=== PATIENT | female | born 1990 | race Caucasian/White ===

== ENCOUNTER 2017-06-07 18:34 | Observation (INO) | payer OTHER ==
[2017-06-07] MEDS ORDERED: KETOROLAC TROMETHAMINE INJ/PF 30 MG/1 ML SDV IV ONE (18:48)
[2017-06-07] MEDS ORDERED: NORMAL SALINE 1000 ML 1,000 ML IV PRN (18:48)
[2017-06-07] MEDS ORDERED: ONDANSETRON HCL INJ/PF 4 MG/2 ML SDV IV ONE (18:48)
--- NOTE | 2017-06-07 18:49 | ER Document Report ---
ED Medical Screen (RME) - General Chief Complaint: Abdominal Pain Stated Complaint: RIGHT SIDE ABDOMINAL PAIN Time Seen by Provider: 06/07/17 18:43 Mode of Arrival: Ambulatory Information source: Patient TRAVEL OUTSIDE OF THE U[place] IN LAST 30 DAYS: No - HPI Patient complains to provider of: Right-sided abdominal pain Onset: This afternoon Notes: 06/07/17 18:48 Patient is a 26-year-old female who presents to the emergency room from urgent care for complaints of right-sided abdominal pain with nausea, vomiting and decreased appetite, symptoms all started today, she denies a fever, she did have dysuria a few days ago but not today, no vaginal discharge or irregular bleeding, history of mitral valve repair in the past but no abdominal surgeries - Related Data Allergies/Adverse Reactions: No Known Allergies Allergy (Verified 06/07/17 18:41) Past Medical History Renal/ Medical History: Denies: Hx Peritoneal Dialysis Physical Exam - Vital signs Vitals: Temp Pulse Resp BP Pulse Ox 98.8 F 129 H 18 137/85 H 97 06/07/17 18:38 06/07/17 18:38 06/07/17 18:38 06/07/17 18:38 06/07/17 18:38 Course - Vital Signs Vital signs: Temp Pulse Resp BP Pulse Ox 98.8 F 129 H 18 137/85 H 97 06/07/17 18:38 06/07/17 18:38 06/07/17 18:38 06/07/17 18:38 06/07/17 18:38
[2017-06-07 20:44] LABS: ABSOLUTE BASOPHILS # (AUTO) 0.1 10^3/uL (0.0-0.2); ABSOLUTE EOSINOPHILS # (AUTO) 0.1 10^3/uL (0.0-0.6); ABSOLUTE LYMPHOCYTES (AUTO) 1.3 10^3/uL (0.5-4.7); ABSOLUTE MONOCYTES (AUTO) 0.7 10^3/uL (0.1-1.4); ABSOLUTE NEUT (AUTO) 11.1 10^3/uL (1.7-8.2); BASOPHILS % (AUTO) 0.4 % (0-2); EOSINOPHILS % (AUTO) 0.4 % (0-6); HEMATOCRIT 44.2 % (36.0-47.0); HEMOGLOBIN 14.5 g/dL (12.0-15.5); HGB HCT DIFFERENCE -0.7; LYMPHOCYTES % (AUTO) 9.8 % (13-45); MEAN CORPUSCULAR HEMOGLOBIN 27.6 pg (27.0-33.4); MEAN CORPUSCULAR HGB CONC 32.7 g/dL (32.0-36.0); MEAN CORPUSCULAR VOLUME 84 fl (80-97); MONOCYTES % (AUTO) 5.6 % (3-13); RED BLOOD COUNT 5.24 10^6/uL (3.72-5.28); RED CELL DISTRIBUTION WIDTH 13.5 % (11.5-14.0); SEGMENTED NEUTROPHILS % (AUTO) 83.8 % (42-78); WHITE BLOOD COUNT 13.3 10^3/uL (4.0-10.5)
[2017-06-07 20:53] LABS: APPEARANCE,URINE SLIGHTLY-CLOUDY; BILIRUBIN,URINE NEGATIVE (NEGATIVE); GLUCOSE, URINE NEGATIVE (NEGATIVE); KETONES,URINE 20 mg/dL (NEGATIVE); LEUKOCYTE ESTERASE,URINE SMALL (NEGATIVE); NITRITE,URINE NEGATIVE (NEGATIVE); PROTEIN,URINE 30 mg/dL (NEGATIVE); URINE SPECIFIC GRAVITY 1.034
[2017-06-07 21:03] LABS: ALANINE AMINOTRANSFERASE 17 U/L (9-52); ALBUMIN 4.8 g/dL (3.5-5.0); ALKALINE PHOSPHATASE 67 U/L (38-126); ANION GAP 16 (5-19); ASPARTATE AMINO TRANSFERASE 17 U/L (14-36); BILIRUBIN,DIRECT 0.3 mg/dL (0.0-0.4); BILIRUBIN,TOTAL 0.9 mg/dL (0.2-1.3); BLOOD UREA NITROGEN 15 mg/dL (7-20); CALCIUM 9.9 mg/dL (8.4-10.2); CARBON DIOXIDE 21 mmol/L (22-30); CHLORIDE 105 mmol/L (98-107); CREATININE RESULT 0.63 mg/dL (0.52-1.25); GLUCOSE 81 mg/dL (75-110); LIPASE 103.9 U/L (23-300); POTASSIUM 3.8 mmol/L (3.6-5.0); SODIUM 141.7 mmol/L (137-145); TOTAL PROTEIN 8.3 g/dL (6.3-8.2)
--- NOTE | 2017-06-07 21:52 | ER Document Report ---
ED GI/ - General Mode of Arrival: Ambulatory Information source: Patient TRAVEL OUTSIDE OF THE U.[place] IN LAST 30 DAYS: No - HPI Patient complains to provider of: Abdominal pain Onset: This afternoon Location: RLQ <CATINA CASTILLO - Last Filed: 06/08/17 02:10> - HPI Patient complains to provider of: Other - preceding anorexia <KARSON VALENTINO - Last Filed: 06/08/17 04:10> - General Chief Complaint: Abdominal Pain Stated Complaint: RIGHT SIDE ABDOMINAL PAIN Time Seen by Provider: 06/07/17 18:43 Notes: Patient is a 26-year-old female who presents to the emergency department today with complaints of right lower quadrant abdominal pain beginning at around 1500 today. Patient states she decided to lie down after her pain began and her pain steadily increased to the point where "she felt like she could not move". Patient states she went to an urgent care who told her she needed to be evaluated in the emergency department for possible appendicitis. Patient states she had a pelvic exam done at urgent care and it was not particularly painful. Patient states she has had sweats and chills and one episode of vomiting. Patient denies any fevers or diarrhea. (CATINA CASTILLO) - Related Data Allergies/Adverse Reactions: No Known Allergies Allergy (Verified 06/07/17 18:41) Past Medical History - General Information source: Patient - Social History Smoking Status: Never Smoker Cigarette use (# per day): No Chew tobacco use (# tins/day): No Frequency of alcohol use: None Drug Abuse: None Lives with: Family Family History: Reviewed & Not Pertinent - Medical History Medical History: Negative Past Surgical History: Reports: Hx Cardiac Surgery - mitral valve repair, Hx Oral Surgery <CATINA CASTILLO - Last Filed: 06/08/17 02:10> Review of Systems - Review of Systems Constitutional: See HPI, Chills, Diaphoresis. denies: Fever EENT: No symptoms reported Cardiovascular: No symptoms reported Respiratory: No symptoms reported Gastrointestinal: denies: Diarrhea Genitourinary: No symptoms reported Female Genitourinary: No symptoms reported Musculoskeletal: No symptoms reported Skin: No symptoms reported Hematologic/Lymphatic: No symptoms reported Neurological/Psychological: No symptoms reported -: Yes All other systems reviewed and negative <CATINA CASTILLO - Last Filed: 06/08/17 02:10> Physical Exam <CATINA CASTILLO - Last Filed: 06/08/17 02:10> <KARSON VALENTINO - Last Filed: 06/08/17 04:10> - Vital signs Vitals: Temp Pulse Resp BP Pulse Ox 98.8 F 129 H 18 137/85 H 97 06/07/17 18:38 06/07/17 18:38 06/07/17 18:38 06/07/17 18:38 06/07/17 18:38 - Notes Notes: PHYSICAL EXAM GENERAL: Alert, interacts well. No acute distress. HEAD: Normocephalic, atraumatic. EYES: Pupils equal, round, and reactive to light. Extraocular movements intact. ENT: Oral mucosa moist, tongue midline. NECK: Full range of motion. Supple. Trachea midline. LUNGS: Clear to auscultation bilaterally, no wheezes, rales, or rhonchi. No respiratory distress. HEART: Regular rate and rhythm. No murmurs, gallops, or rubs. ABDOMEN: RLQ tenderness with palpation, positive McBurney's point tenderness. Non-distended. Bowel sounds present in all 4 quadrants. EXTREMITIES: Moves all 4 extremities spontaneously. No edema, radial and dorsalis pedis pulses 2/4 bilaterally. No cyanosis. NEUROLOGICAL: Alert and oriented x3. Normal speech. PSYCH: Normal affect, normal mood. SKIN: Warm, dry, normal turgor. No rashes or lesions noted. (CATINA CASTILLO) Course - Laboratory Result Diagrams: 06/07/17 20:22 06/07/17 20:22 <CATINA CASTILLO - Last Filed: 06/08/17 02:10> - Laboratory Result Diagrams: 06/07/17 20:22 06/07/17 20:22 <KARSON VALENTINO - Last Filed: 06/08/17 04:10> - Re-evaluation Re-evalutation: 06/08/17 02:10 Attempted to contact surgeon, Dr. Zacarias, no answer. (CATINA CASTILLO) 06/08/17 02:43 CBC shows leukocytosis with a white blood cell count of 13.3, CMP shows slightly low CO2 at 21 otherwise unremarkable, hCG negative, urinalysis shows small leukocyte esterase, suspect pyuria from her appendicitis, suspect this is sterile. CT scan shows unruptured appendicitis, will be treated with Zosyn. Discussed with Dr. Zacarias who will see the patient in the morning, has agreed to admit the patient to his service. Additionally the patient does have an abnormal process going on regarding her lumbar and sacral spine, radiologist is uncertain as to what this is, recommends follow-up contrasted MRI of the lumbar and sacral spine, not emergently. This was discussed with the patient and her . They are aware of the need for an outpatient MRI. (KARSON VALENTINO) - Vital Signs Vital signs: Temp Pulse Resp BP Pulse Ox 98.8 F 129 H 16 111/70 98 06/07/17 18:38 06/07/17 18:38 06/08/17 03:01 06/08/17 03:00 06/08/17 03:48 - Laboratory Laboratory results interpreted by me: 06/07/17 06/07/17 06/07/17 20:22 20:22 20:22 WBC 13.3 H Seg Neutrophils % 83.8 H Lymphocytes % 9.8 L Absolute Neutrophils 11.1 H Carbon Dioxide 21 L Total Protein 8.3 H Urine Protein 30 H Urine Ketones 20 H Urine Urobilinogen 2.0 H Ur Leukocyte Esterase SMALL H Discharge <CATINA CASTILLO - Last Filed: 06/08/17 02:10> - Discharge Admitting Provider: Surgicalist - [facility]ann Unit Admitted: Surgical Floor <KARSON VALENTINO - Last Filed: 06/08/17 04:10> - Discharge Clinical Impression: Acute appendicitis Qualifiers: Acute appendicitis type: with localized peritonitis Qualified Code(s): K35.3 - Acute appendicitis with localized peritonitis Condition: Stable Disposition: ADMITTED INPATIENT Scribe Attestation: 06/08/17 04:10 I personally performed the services described in the documentation, reviewed and edited the documentation which was dictated to the scribe in my presence, and it accurately records my words and actions. (KARSON VALENTINO) Scribe Documentation - Scribe Written by Francisco J:: Francisco J Richardson, 06/08/2017 0202 acting as scribe for :: Ronald <CATINA CASTILLO - Last Filed: 06/08/17 02:10>
[2017-06-08] MEDS ORDERED: NORMAL SALINE 1000 ML 1,000 ML IV ONE (02:10)
[2017-06-08] MEDS ORDERED: PIPERACILLIN/TAZOBACTAM 3.375 GM VIAL IV ONE (02:10)
[2017-06-08] MEDS ORDERED: DEXTROSE 40% GEL 15 GM TUBE PO PRN ×2 (06:29)
[2017-06-08] MEDS ORDERED: DEXTROSE 50%-WATER 25 GM/50 ML DISP.SYRIN IV PRN ×2 (06:29)
[2017-06-08] MEDS ORDERED: GLUCAGON,HUMAN RECOMB 1 MG INJ SUBCUT PRN (06:29)
[2017-06-08] MEDS ORDERED: NORMAL SALINE 1000 ML 1,000 ML IV PRN (06:42)
[2017-06-08] MEDS ORDERED: HYDROMORPHONE HCL INJ/PF 2 MG/ML AMPULE IV PRN (06:44)
[2017-06-08] MEDS ORDERED: PIPERACILLIN/TAZOBACTAM 3.375 GM VIAL IV PRN (06:44)
[2017-06-08] MEDS ORDERED: ONDANSETRON HCL INJ/PF 4 MG/2 ML SDV IV PRN ×3 (06:45→13:42)
--- NOTE | 2017-06-08 07:02 | HISTORY AND PHYSICAL E ---
History and Physical NAME: JOHANNE MCKAY : 1990 AGE: 26Y ADMITTED: 06/08/2017 ROOM: 529 CHIEF COMPLAINT: Abdominal pains. HISTORY OF PRESENT ILLNESS: This is a 26-year-old female complaining of right lower quadrant pains yesterday at 3 p.m. associated with nausea and 1 episode of vomiting. Denies any diarrhea nor constipation or dysuria. She first went to the emergency room at [place]. She had a CAT scan of the abdomen, which was compatible with acute appendicitis. PAST HISTORY: 1. History of open heart surgery for repair of mitral valve due to endocarditis at age 21. Patient does not take any medications. 2. She had 2 normal vaginal deliveries in the past. ALLERGIES: None known. SOCIAL HISTORY: Denies smoking, drinking, or drug use. FAMILY HISTORY: Positive for diabetes and atrial fibrillation in the father's side. REVIEW OF SYSTEMS: HEENT: No hearing problems. Wears eyeglasses. PULMONARY: No chest pain, shortness of breath. No cough. GENITOURINARY: No dysuria. MUSCULOSKELETAL: No joint pains or balance problems. No easy bruisability. GASTROINTESTINAL: As in HPI. Abdominal pains with anorexia and nausea and vomiting. Rest of the systems reviewed and are negative. PHYSICAL EXAMINATION: GENERAL: Well-developed, well-nourished 26-year-old female, alert and oriented, complaining of right lower quadrant pains. NECK: Supple. No thyromegaly. LUNGS: Clear. HEART: Regular sinus rhythm. ABDOMEN: Soft with tenderness and rebound in the right lower quadrant. Pain is more on direct palpation than on rebound. EXTREMITIES: No edema. IMPRESSION: Acute appendicitis. PLAN: 1. IV antibiotics. 2. Hydration. 3. Possible laparoscopic appendectomy this morning by Dr. Castillo. DICTATING PHYSICIAN: ALISA GONZALEZ M.D. [id number] PHY#: [id number] ID: [id number] JOB#: [id number] ACCT: [id number] cc:ALISA GONZALEZ M.D. NO Elizabeth LYONS
[2017-06-08] MEDS ORDERED: PIPERACILLIN SODIUM/TAZOBACTAM 3.375 GM in NORMAL SALINE 100 ML IV ONE (08:00)
--- NOTE | 2017-06-08 08:17 | PDOC PROGRESS REPORT ---
Subjective Progress Note for:: 06/08/17 Subjective:: Persistent right lower quadrant abdominal pain. Physical Exam Vital Signs: Temp Pulse Resp BP Pulse Ox 98.0 F 75 17 98/44 L 99 06/08/17 07:51 06/08/17 07:51 06/08/17 07:51 06/08/17 07:51 06/08/17 07:51 Intake & Output 06/07/17 06/08/17 06/09/17 06:59 06:59 06:59 Intake Total 240 Output Total 375 Balance -135 Weight 80.7 kg General appearance: PRESENT: no acute distress, cooperative Respiratory exam: PRESENT: clear to auscultation hanane Cardiovascular exam: PRESENT: RRR GI/Abdominal exam: PRESENT: other - Soft, nondistended, focal tenderness to palpation in the right lower quadrant with voluntary guarding. Assessment & Plan - Diagnosis (1) Acute appendicitis Qualifiers: Acute appendicitis type: with localized peritonitis Qualified Code(s): K35.3 - Acute appendicitis with localized peritonitis Is this a current diagnosis for this admission?: Yes Plan: Likely appendicitis. Will plan laparoscopic appendectomy. I have discussed with the patient the risk and benefits of the surgery including risk of conversion to an open procedure, risk of mistaken diagnosis, risk of bleeding, infection, adjacent structure injury, stump leak. Patient understands and agrees to proceed.
[2017-06-08] MEDS ORDERED: PIPERACILLIN SODIUM/TAZOBACTAM 3.375 GM in NORMAL SALINE 100 ML IV SCH ×2 (09:00→15:00)
[2017-06-08] MEDS ORDERED: FENTANYL CITRATE INJ/PF 250 MCG/5 ML AMPULE ONE (10:32)
[2017-06-08] MEDS ORDERED: ACETAMINOPHEN 100 ML IV ONE (10:33)
[2017-06-08] MEDS ORDERED: FENTANYL CITRATE INJ/PF 100 MCG/2 ML AMPUL ONE (10:33)
[2017-06-08] MEDS ORDERED: MIDAZOLAM 2 MG/2 ML INJ ONE (10:33)
[2017-06-08] MEDS ORDERED: PROPOFOL INJ 200 MG/20 ML VIAL IV ONE (10:33)
[2017-06-08] MEDS ORDERED: MORPHINE SULFATE 10 MG/ML INJ ONE (10:34)
[2017-06-08] MEDS ORDERED: BUPIVACAINE HCL 0.25 % INJ/PF (2.5 MG/1 ML) 30 ML VIAL ONE ×2 (10:36→11:23)
[2017-06-08] MEDS ORDERED: HYDROMORPHONE HCL INJ/PF 2 MG/ML AMPULE ONE (11:21)
[2017-06-08] MEDS ORDERED: DIPHENHYDRAMINE HCL 50 MG/ML VIAL IV PRN (12:06)
[2017-06-08] MEDS ORDERED: FENTANYL CITRATE INJ/PF 100 MCG/2 ML AMPUL IV PRN ×3 (12:06)
[2017-06-08] MEDS ORDERED: MEPERIDINE HCL/PF INJ 25 MG/1 ML DISP.SYRIN IV PRN (12:06)
[2017-06-08] MEDS ORDERED: DEXTROSE 5%-LACTATED RINGERS 1,000 ML IV PRN (13:42)
[2017-06-08] MEDS ORDERED: MORPHINE SULFATE 10 MG/ML INJ IV PRN (13:42)
--- NOTE | 2017-06-08 13:42 | Operative Report ---
Operative Report DATE OF SURGERY: 06/08/17 PREOPERATIVE DIAGNOSIS: Appendicitis POSTOPERATIVE DIAGNOSIS: Appendicitis OPERATION: Laparoscopic appendectomy SURGEON: VANDANA MADERA ANESTHESIA: GA TISSUE REMOVED OR ALTERED: Appendix COMPLICATIONS: None ESTIMATED BLOOD LOSS: Minimal INTRAOPERATIVE FINDINGS: Small amount of bloody fluid in the pelvis. Bilateral ovaries appears normal. Colon distention but otherwise normal appearing right colon and sigmoid colon. Normal-appearing small bowel. Normal-appearing liver and gallbladder. Distended appendix. PROCEDURE: Informed consent was obtained. Patient was brought to the operating room and placed on the operating room table in the supine position. After satisfactory induction of general anesthesia, patient's abdomen was prepped and draped in usual sterile fashion. A supraumbilical midline incision was made and dissection carried down through the fascia and the peritoneal cavity entered without difficulty. Griffin trocar was inserted pneumoperitoneum produced with good patient toleration. 5 mm trocar was placed in right lateral abdomen lateral to the rectus above the level of the umbilicus. Another 5 mm trocar was placed in the left lateral abdomen lateral to the rectus below the level of the umbilicus. The patient was placed in Trendelenburg position with the right side up. The appendix was visualized it appeared distended and its mesentery thickened. There was small amount of bloody fluid in the pelvis that was irrigated and aspirated out. Both of her ovaries were visualized and they appeared normal. As did the uterus. The colon appeared distended but otherwise the right colon and the sigmoid colon appeared normal. The small bowel was run for about 3 feet and it demonstrated no abnormalities. The liver appeared normal S of the gallbladder. A plane was created between the appendix and the mesial appendix. The appendix was taken flush with the cecum using a Endo ERLIN stapling device. The mesoappendix was taken using another load of the Endo ERLIN stapling device. The stump closure appeared secure and hemostasis appeared excellent. the appendix was placed in an Endobag and removed through the Griffin trocar site fascial defect. All trochars were removed under the direct vision of the laparoscope to ensure hemostasis. The Griffin trocar site fascial defect was closed with interrupted Vicryl sutures. All skin incisions were closed with subcuticular interrupted Monocryl sutures. Marcaine was injected at the port sites. Patient tolerated procedure well with no apparent complications and was taken to the recovery area in stable condition.
[2017-06-08] MEDS ORDERED: ONDANSETRON HCL INJ/PF 4 MG/2 ML SDV ONE ×2 (13:47→14:43)
[2017-06-08] MEDS ORDERED: DEXAMETHASONE SOD PHOSPHATE INJ 4 MG/1 ML VIAL ONE (13:47)
[2017-06-08] MEDS ORDERED: NEOSTIGMINE METHYLSULFATE 10 MG/10 ML VIAL ONE (13:47)
[2017-06-08] MEDS ORDERED: LIDOCAINE 2% INJ-PF (20 MG/ML) 10 ML AMPUL ONE (13:47)
[2017-06-08] MEDS ORDERED: GLYCOPYRROLATE INJ 0.4 MG/2 ML VIAL ONE (13:47)
[2017-06-08] MEDS ORDERED: ROCURONIUM BROMIDE INJ 50 MG/5 ML VIAL IV ONE (13:47)
--- NOTE | 2017-06-08 19:41 | PDOC PROGRESS REPORT ---
Subjective Progress Note for:: 06/08/17 Subjective:: Tired but overall feels okay. Physical Exam Vital Signs: Temp Pulse Resp BP Pulse Ox 97.8 F 87 18 114/78 99 06/08/17 18:10 06/08/17 18:10 06/08/17 18:10 06/08/17 18:10 06/08/17 18:10 Intake & Output 06/07/17 06/08/17 06/09/17 06:59 06:59 06:59 Intake Total 240 3769 Output Total 375 1570 Balance -135 2199 Weight 80.7 kg General appearance: PRESENT: no acute distress, cooperative Respiratory exam: PRESENT: clear to auscultation hanane Cardiovascular exam: PRESENT: RRR GI/Abdominal exam: PRESENT: other - Soft, nondistended, no tenderness to palpation in the right lower quadrant. Assessment & Plan - Diagnosis (1) Acute appendicitis Qualifiers: Acute appendicitis type: with localized peritonitis Qualified Code(s): K35.3 - Acute appendicitis with localized peritonitis Is this a current diagnosis for this admission?: Yes Plan: Status post laparoscopic appendectomy. Patient doing well postoperatively. With resolution of her preoperative pain and tenderness.
[2017-06-09 09:56] VITALS: BP 107/62
--- NOTE | 2017-06-09 10:01 | PDOC PROGRESS REPORT ---
Subjective Progress Note for:: 06/09/17 Subjective:: patient comfortable Physical Exam Vital Signs: Temp Pulse Resp BP Pulse Ox 98.5 F 67 17 110/54 L 99 06/09/17 03:19 06/09/17 03:19 06/09/17 03:19 06/09/17 03:19 06/09/17 03:19 Intake & Output 06/08/17 06/09/17 06/10/17 06:59 06:59 06:59 Intake Total 240 6049 Output Total 375 2150 Balance -135 3899 Weight 80.7 kg General appearance: PRESENT: no acute distress Respiratory exam: PRESENT: clear to auscultation hanane Cardiovascular exam: PRESENT: RRR GI/Abdominal exam: PRESENT: normal bowel sounds, soft, other - all wounds are clean, dry, intact Assessment & Plan - Diagnosis (1) Acute appendicitis Qualifiers: Acute appendicitis type: with localized peritonitis Qualified Code(s): K35.3 - Acute appendicitis with localized peritonitis Is this a current diagnosis for this admission?: Yes - Plan Summary Plan Summary: A/ POD#1 after laparoscopic appendectomy Patient tolerating regular food well VSS AF Abdomen soft, wound c/d/i P/ Home today F/u in the office in 1 week shower only, bath in 2 weeks activity as tolerated, no limitations no wound care needed return to work in 2-3 days Tylenol/Aleve for pain Plenty of fluids and Miralax as needed
--- NOTE | 2017-06-09 10:41 | DISCHARGE SUMMARY E ---
Discharge Summary NAME: JOHANNE MCKAY : 1990 AGE: 26Y ADMITTED: 06/08/2017 DISCHARGED: 06/09/2017 FINAL DIAGNOSES: 1. Abdominal pain. 2. Acute appendicitis. PROCEDURE: On 06/08/2017, the patient underwent a laparoscopic appendectomy. COMPLICATIONS: None. HOSPITAL COURSE: This is a healthy 26-year-old female who presented to the emergency room complaining of abdominal pain. She was evaluated by the animal trapper first and CT scan abdomen and pelvis was done revealing acute appendicitis. The patient was admitted on 06/07/2017, seen by the Surgeon on 06/08/2017, she underwent a laparoscopic appendectomy for acute appendicitis on the same day. during the procedure, no perforation was noted. The procedure was uneventful. The patient was transferred to the floor. Her postop course was unremarkable. On the day of discharge, the patient had no complaints. She was tolerating p.o. well. Her regular diet was well tolerated. Vital signs were stable. Physical exam was unremarkable. Abdomen soft. All incisions were clean, dry, intact. ASSESSMENT AND PLAN: She was given a followup appointment with Dr. Castillo next week on 06/12/17. Activity as tolerated. A regular diet. Shower only for 2 weeks, then bath is allowed. She was given Tylenol 325 p.o. q. 6 p.r.n. for pain, Aleve 220 p.o. b.i.d. p.r.n. for pain. She was instructed to drink plenty of fluids and to use Miralax p.r.n. for constipation. No wound care needed. DICTATING PHYSICIAN: CINDA GODINEZ M.D. [id number] PHY#: [id number] ID: [id number] JOB#: [id number] ACCT: [id number] cc:Elizabeth GRESHAM MD, M.D. [facility], > [facility]
--- NOTE | 2017-06-12 12:45 | RADIOLOGY REPORT (SQ) ---
EXAM DESCRIPTION: CT ABD/PELVIS WITH IV ORAL COMPLETED DATE/TIME: 06/08/2017 1:25 am REASON FOR STUDY: RLQ abd pain, eval for appendicitis. COMPARISON: None. TECHNIQUE: CT scan of the abdomen and pelvis performed with intravenous and oral contrast using hel ical scanning technique with dynamic intravenous contrast injection. Images reviewed with lung, soft tissue, and bone windows. Reconstructed coronal and sagittal MPR images reviewed. All images stored o n PACS. All CT scanners at this facility use dose modulation, iterative reconstruction, and/or weight based d osing when appropriate to reduce radiation dose to as low as reasonably achievable (ALARA). [facility]: Dose Right [facility]: CareDose [facility]: Dose Right [facility]: Teradose 4D [facility]: Cytheris CONTRAST TYPE AND DOSE: Contrast CT of the abdomen pelvis using 35 cc Isovue 370 IV and oral contras t LIMITATIONS: None. FINDINGS: 0.8 cm diameter fluid-filled appendix with punctate appendicolith consistent with acute ap pendicitis. Small cortical scar of the right kidney. Cystic enlargement of the lumbar and sacral spinal canal and bilateral S1 neural foramen a with cysti c components measuring up to 5.2 cm, left more than right. IUD. Prior sternotomy. Inferior chest, liver, spleen, adrenals, pancreas, gallbladder, remaining ga strointestinal tract, lymphatic system, remaining renal system, and pelvic structures appear grossly intact. IMPRESSION: 1. Acute appendicitis. 2. Cystic enlargement of the lumbosacral spinal canal and bilateral S1 foramina. Differential diagn osis includes nerve sheath tumor/neurofibromatosis, polyostotic fibrous dysplasia, and other neoplast ic processes. Contrast MRI of the spine and brain recommended. TECHNICAL DOCUMENTATION: JOB ID: [id number] Quality ID # [id number]: Final reports with documentation of one or more dose reduction techniques (e.g., Au tomated exposure control, adjustment of the mA and/or kV according to patient size, use of iterative reconstruction technique) 2010 [employer]- All Rights Reserved
== END 2017-06-09 10:51 | disposition home or self-care (01) ==
LOC: ER 18:34 → INTOOBSV 06-08 02:48 → EH 06-08 02:48 → 5 06-08 03:58
PROVIDERS: ATTEND Surgery
PROC: 0DTJ4ZZ Resection of Appendix, Percutaneous Endoscopic Approach (ICD-10-PCS; principal; 2017-06-08 11:00)
DX: K35.3 Acute appendicitis with localized peritonitis (principal); R10.9 Unspecified abdominal pain; K63.89 Other specified diseases of intestine
CPT/HCPCS: 44970; 99285; 96361; 96374; 96375; 36415; 87086; 83690; 84703; 85025; 80053; 81001; 88304 ×2; 74177; G0378 ×2; J2250; J3490 ×2; J1100; J3010; J1885; J1170; J2405 ×2; J7030 ×2; J2704; J2543; J0131; 840; J2270

== ENCOUNTER 2019-07-29 10:49 | Emergency (ER) | payer BC, OTHER ==
[2019-07-29] MEDS ORDERED: ASPIRIN 81 MG TABLET, CHEWABLE PO ONE (11:18)
--- NOTE | 2019-07-29 11:20 | ER Document Report ---
ED Medical Screen (RME) - General Chief Complaint: Shortness Of Breath Stated Complaint: CHEST PRESSURE Time Seen by Provider: 07/29/19 11:11 Mode of Arrival: Ambulatory Information source: Patient Notes: Patient presents complaining of chest pain for the past 4 days with fever for the past 3 days. Patient reports exertional shortness of breath. No cough or cold symptoms. Patient does report a history of endocarditis with previous mitral valve repair. Patient also reports long distance travel to [place] last week. I have greeted and performed a rapid initial assessment of this patient. A comprehensive ED assessment and evaluation of the patient, analysis of test results and completion of the medical decision making process will be conducted by additional ED providers. TRAVEL OUTSIDE OF THE [place] IN LAST 30 DAYS: No - Related Data Allergies/Adverse Reactions: No Known Allergies Allergy (Verified 06/07/17 18:41) Past Medical History Renal/ Medical History: Denies: Hx Peritoneal Dialysis Past Surgical History: Reports: Hx Cardiac Surgery - mitral valve repair, Hx Oral Surgery Physical Exam - Cardiovascular Rhythm: Regular, Tachycardia Heart sounds: S1 appreciated, S2 appreciated
[2019-07-29 12:13] LABS: ABSOLUTE EOSINOPHILS # (AUTO) 0.1 10^3/uL (0.0-0.6); ABSOLUTE LYMPHOCYTES (AUTO) 1.5 10^3/uL (0.5-4.7); ABSOLUTE MONOCYTES (AUTO) 0.7 10^3/uL (0.1-1.4); ABSOLUTE NEUT (AUTO) 6.3 10^3/uL (1.7-8.2); BASOPHILS % (AUTO) 0.4 % (0-2); EOSINOPHILS % (AUTO) 0.9 % (0-6); HEMOGLOBIN 12.7 g/dL (12.0-15.5); LYMPHOCYTES % (AUTO) 17.1 % (13-45); MEAN CORPUSCULAR HEMOGLOBIN 27.3 pg (27.0-33.4); MEAN CORPUSCULAR HGB CONC 33.4 g/dL (32.0-36.0); MEAN CORPUSCULAR VOLUME 82 fl (80-97); MONOCYTES % (AUTO) 8.2 % (3-13); PLATELET COUNT 259 10^3/uL (150-450); RED BLOOD COUNT 4.64 10^6/uL (3.72-5.28); SEGMENTED NEUTROPHILS % (AUTO) 73.4 % (42-78); TOTAL CELLS COUNTED % (AUTO) 100 %; WHITE BLOOD COUNT 8.6 10^3/uL (4.0-10.5)
[2019-07-29 12:44] LABS: ALBUMIN 4.1 g/dL (3.5-5.0); ALKALINE PHOSPHATASE 74 U/L (38-126); ANION GAP 10 (5-19); ASPARTATE AMINO TRANSFERASE 26 U/L (14-36); BILIRUBIN,DIRECT 0.1 mg/dL (0.0-0.4); BILIRUBIN,TOTAL 0.8 mg/dL (0.2-1.3); BLOOD UREA NITROGEN 10 mg/dL (7-20); CALCIUM 9.5 mg/dL (8.4-10.2); CARBON DIOXIDE 25 mmol/L (22-30); CHLORIDE 103 mmol/L (98-107); GLUCOSE 84 mg/dL (75-110); POTASSIUM 4.2 mmol/L (3.6-5.0); TOTAL PROTEIN 7.1 g/dL (6.3-8.2)
--- NOTE | 2019-07-29 13:12 | EKG REPORT ---
SEVERITY:- ABNORMAL ECG - SINUS TACHYCARDIA ATRIAL PREMATURE COMPLEX PROBABLE LEFT ATRIAL ABNORMALITY BORDERLINE RIGHT AXIS DEVIATION BORDERLINE T ABNORMALITIES, ANT-LAT LEADS : Confirmed by: Russel Guillory MD 29-Jul-2019 13:11:26
--- NOTE | 2019-07-29 13:24 | RADIOLOGY REPORT (SQ) ---
EXAM DESCRIPTION: CHEST 2 VIEWS COMPLETED DATE/TIME: 07/29/2019 1:16 pm REASON FOR STUDY: cp, sob COMPARISON: None. EXAM PARAMETERS: NUMBER OF VIEWS: two views TECHNIQUE: Digital Frontal and Lateral radiographic views of the chest acquired. RADIATION DOSE: NA LIMITATIONS: none FINDINGS: LUNGS AND PLEURA: No opacities, masses or pneumothorax. No pleural effusion. MEDIASTINUM AND HILAR STRUCTURES: No masses or contour abnormalities. HEART AND VASCULAR STRUCTURES: Heart normal size. No evidence for failure. BONES: Scoliosis. HARDWARE: Sternotomy wires. Heart valve. OTHER: No other significant finding. IMPRESSION: NO ACUTE RADIOGRAPHIC FINDING IN THE CHEST. TECHNICAL DOCUMENTATION: JOB ID: [id number] [employer]- All Rights Reserved Reading location - IP/workstation name: [email or web address]
--- NOTE | 2019-07-29 15:09 | ER Document Report ---
ED General - General Mode of Arrival: Ambulatory TRAVEL OUTSIDE OF THE [place] IN LAST 30 DAYS: No - HPI Onset: Just prior to arrival Onset/Duration: Gradual Quality of pain: Achy Severity: Moderate Pain Level: 2 <CATHI MORRISON - Last Filed: 07/29/19 15:45> <KARSON VALENTINO - Last Filed: 07/30/19 00:02> - General Chief Complaint: Chest Pain Stated Complaint: CHEST PRESSURE Time Seen by Provider: 07/29/19 11:11 Primary Care Provider: CAPO LOPEZ PA-C [Primary Care Provider] - Follow up as needed - HPI Context: 29 year old female arrives with complaints of chest pain and sob since - 4 days ago. SOB is worse since the weekend and some fever and chills over the weekend. No rash. H/O endocarditis 4 years ago and mitral valve repair. No recent illness. Denies urinary symptoms. Woke up with chills and fever over weekend. Nonsmoker. IUD in place. (CATHI MORRISON) - Related Data Allergies/Adverse Reactions: No Known Allergies Allergy (Verified 06/07/17 18:41) Past Medical History - General Information source: Patient - Social History Smoking Status: Never Smoker Frequency of alcohol use: None Drug Abuse: None Family History: Reviewed & Not Pertinent Patient has suicidal ideation: No Patient has homicidal ideation: No Renal/ Medical History: Denies: Hx Peritoneal Dialysis Past Surgical History: Reports: Hx Appendectomy, Hx Cardiac Surgery - mitral valve repair, Hx Oral Surgery <CATHI MORRISON - Last Filed: 07/29/19 15:45> Review of Systems - Review of Systems Constitutional: See HPI, Chills, Fever EENT: No symptoms reported Cardiovascular: See HPI, Chest pain Respiratory: See HPI, Short of breath Gastrointestinal: No symptoms reported Genitourinary: No symptoms reported Female Genitourinary: No symptoms reported Musculoskeletal: No symptoms reported Skin: No symptoms reported Hematologic/Lymphatic: No symptoms reported Neurological/Psychological: No symptoms reported <CATHI MORRISON - Last Filed: 07/29/19 15:45> Physical Exam - Vital signs Interpretation: Normal - General General appearance: Appears well, Alert - HEENT Head: Normocephalic, Atraumatic Eyes: Normal Pupils: PERRL - Respiratory Respiratory status: No respiratory distress Chest status: Nontender Breath sounds: Normal Chest palpation: Normal - Cardiovascular Rhythm: Regular Heart sounds: Normal auscultation Murmur: No - Abdominal Inspection: Normal Distension: No distension Bowel sounds: Normal Tenderness: Nontender Organomegaly: No organomegaly - Back Back: Normal, Nontender - Extremities General upper extremity: Normal inspection, Nontender, Normal color, Normal ROM, Normal temperature General lower extremity: Normal inspection, Nontender, Normal color, Normal ROM, Normal temperature, Normal weight bearing. No: Jason's sign - Neurological Neuro grossly intact: Yes Cognition: Normal Orientation: AAOx4 [place] Coma Scale Eye Opening: Spontaneous [place] Coma Scale Verbal: Oriented Kyle Coma Scale Motor: Obeys Commands Kyle Coma Scale Total: 15 Speech: Normal Motor strength normal: LUE, RUE, LLE, RLE Sensory: Normal - Psychological Associated symptoms: Normal affect, Normal mood - Skin Skin Temperature: Warm Skin Moisture: Dry Skin Color: Normal <CATHI MORRISON - Last Filed: 07/29/19 15:45> - Vital signs Vitals: Pulse Ox 98 07/29/19 11:18 Course - Laboratory Result Diagrams: 07/29/19 11:58 07/29/19 11:58 - EKG Interpretation by [place] EKG shows normal: Sinus rhythm Rate: Normal - NSR Nl [place] [address] elevation or depression my interpretation. <CATHI MORRISON - Last Filed: 07/29/19 15:45> - Laboratory Result Diagrams: 07/29/19 11:58 07/29/19 11:58 <KARSON VALENTINO - Last Filed: 07/30/19 00:02> - Re-evaluation Re-evalutation: 07/29/19 23:55 Patient received in signout from Dr. Morrison, repeat history and physical exam reveals the patient has been having intermittent subjective fevers for the past several days associated with a pressure and tightness in her chest that feels worse when she walks around and when she tries to take a deep breath. Patient is quite concerned because this is very similar to when she had endocarditis in 2010. Patient ended up having 6 weeks of IV antibiotics through a PICC line, they were never able to determine why she had endocarditis and continues to deny risk factors for endocarditis including IV drug use, tattoos, piercings, self- catheterization. Afterwards patient had a suture repair of a mitral valve that had slight prolapse. Patient is not on any blood thinners and has not had any problems since then. 07/29/19 23:58 CBC unremarkable, d-dimer elevated and CT angiogram of the chest does not show any pulmonary embolism, there is a small amount of tissue of undetermined sig nificance around the be[place], small pleural effusion, no evidence of pulmonary embolism. The CAT scan read initially talked about sternotomy wires and and aortic valve replacement. Patient denies any valve replacement only surgical repair of the mitral valve. I did review this with the radiologist on overnight from [facility] who agrees that there is no aortic valve replacement and there is only a surgical repair of the mitral valve but no evidence of valve replacement. He will enter an addendum to this effect, CMP grossly unremarkable, troponin negative, proBNP minimally elevated at 284, patient has no evidence of renal failure, test is negative, urinalysis shows 20 ketones, when patient was ambulated she did not become hypoxic but she did become tachycardic, patient was given a liter fluid and some steroids for likely pleurisy, patient was then ambulated again and her heart rate instead of hitting a max of 128 now only had a maximum of 114. Repeat blood cultures were drawn in case we are missing very early endocarditis. Possibility of very early endocarditis was discussed with patient and the need for outpatient follow-up if she continues to have intermittent fevers was discussed with patient. Also discussed the importance of buying batteries for her thermometer so she can actually document her fevers. Patient will be started on steroids for presumed pleurisy and discharged home. She will return for continuing fevers, worsening chest pain or tightness, syncopal or near syncopal episode or worsening difficulty breathing. (KARSON VALENTINO) - Vital Signs Vital signs: Temp Pulse Resp BP Pulse Ox 97.9 F 100 21 H 120/69 97 07/29/19 18:22 07/29/19 11:23 07/29/19 23:01 07/29/19 23:01 07/29/19 23:01 - Laboratory Laboratory results interpreted by me: 07/29/19 07/29/19 07/29/19 11:58 11:58 15:15 D-Dimer 1.34 H NT-Pro-B Natriuret Pep 284 H Urine Ketones 20 H - EKG Interpretation by Me Additional EKG results interpreted by me: 07/30/19 00:00 EKG shows sinus rhythm at a rate of 99, slight right axis deviation, normal intervals, rapid R wave progression, no ST segment elevations or depressions per my interpretation. (KARSON VALENTINO) Discharge <CATHI MORRISON - Last Filed: 07/29/19 15:45> <KARSON VALENTINO - Last Filed: 07/30/19 00:02> - Discharge Clinical Impression: Tachycardia, Pleurisy with effusion Condition: Stable Disposition: HOME, SELF-CARE Additional Instructions: Pleurisy Your chest pain has been diagnosed as pleuritis (pleurisy). This is an inflammation of the surface of the lung tissue. It can be caused by a virus or, occasionally, old scar tissue. It is painful but, for the most part, not a serious problem. This pain is usually made worse by deep breathing, coughing, or sudden movements of the upper body or arms. The treatment is relief of symptoms. It includes rest, antiinflammatory medication, and pain medicine. Resolution of the pain is usually rapid once antiinflammatory medication is started. Warning signs of a more serious problem include: a fever, shortness of breath, pain that radiates to your jaw, shoulders or arms, or coughing up bloody sputum. If any of these symptoms occur, call the physician at once. Return for worsening pain, increasing shortness of breath or any passing out. Please follow-up with your primary care physician as an outpatient. Please get a working thermometer so you can record her temperature when you feel like you have an elevated temperature. These take ibuprofen 800 mg every 8 hours for the next 3 days. Prescriptions: Prednisone [Deltasone 20 mg Tablet] 2 tab PO DAILY 4 Days tablet Forms: Return to Work Referrals: CAPO LOPEZ PA-C [Primary Care Provider] - Follow up as needed
[2019-07-29 15:40] LABS: APPEARANCE,URINE CLEAR; BILIRUBIN,URINE NEGATIVE (NEGATIVE); COLOR,URINE YELLOW; GLUCOSE, URINE NEGATIVE (NEGATIVE); KETONES,URINE 20 mg/dL (NEGATIVE); LEUKOCYTE ESTERASE,URINE NEGATIVE (NEGATIVE); NITRITE,URINE NEGATIVE (NEGATIVE); PROTEIN,URINE NEGATIVE (NEGATIVE); URINE SPECIFIC GRAVITY 1.009; UROBILINOGEN,URINE NEGATIVE mg/dL (<2.0)
--- NOTE | 2019-07-29 18:36 | RADIOLOGY REPORT (SQ) ---
EXAM DESCRIPTION: CTA CHEST COMPLETED DATE/TIME: 07/29/2019 5:18 pm REASON FOR STUDY: chest pain sob. COMPARISON: Chest radiograph TECHNIQUE: CT scan of the chest performed using helical scanning technique with dynamic intravenous contrast injection. Images reviewed with lung, soft tissue and bone windows. Reconstructed coronal and sagittal MPR images reviewed. Additional 3 dimensional post-processing performed to develop Maximal Intensity Projection images (CA P). All images stored on PACS. All CT scanners at this facility use dose modulation, iterative reconstruction, and/or weight based d osing when appropriate to reduce radiation dose to as low as reasonably achievable (ALARA). [facility]: Dose Right [facility]: CareDose [facility]: Dose Right [facility]: Teradose 4D [facility]: SpineVision CONTRAST TYPE AND DOSE: contrast/concentration: Isovue 350.00 mg/ml; Total Contrast Delivered: 66.0 ml; Total Saline Delivered: 63.6 ml Contrast bolus adequate for pulmonary arteries and aorta. RENAL FUNCTION: None required. The patient is less than 50 years old. RADIATION DOSE: CT Rad equipment meets quality standard of care and radiation dose reduction techniq ues were employed. CTDIvol: 14.9 - 15.2 mGy. DLP: 604 mGy-cm. . LIMITATIONS: None. FINDINGS: LUNGS AND PLEURA: Small right pleural effusion. AORTA AND GREAT VESSELS: No aneurysm or dissection. HEART: No pericardial effusion. No significant coronary artery calcifications. PULMONARY ARTERIES: No emboli visualized in the main pulmonary arteries or the segmental branches. HILAR AND MEDIASTINAL STRUCTURES: There is soft tissue posterior inferior to the left atrium. Aortic valve replacement. No fluid collection. The esophagus is unremarkable. HARDWARE: Aortic valve replacement. UPPER ABDOMEN: No significant findings. Limited exam. THYROID AND OTHER SOFT TISSUES: No masses. No adenopathy. BONES: Scoliosis. Prior sternotomy. 3D MIPS: Confirm above findings. OTHER: No other significant finding. IMPRESSION: No pulmonary emboli. There is a small right pleural effusion. There is also soft tissue in the subcarinal location of undetermined etiology. The esophagus is unre markable. Aortic valve replacement. COMMENT: Quality ID # [id number]: Final reports with documentation of one or more dose reduction techniques (e.g., Automated exposure control, adjustment of the mA and/or kV according to patient size, use of iterative reconstruction technique) TECHNICAL DOCUMENTATION: JOB ID: [id number]- All Rights Reserved Reading location - IP/workstation name: [email or web address]
[2019-07-29] MEDS ORDERED: NORMAL SALINE 1000 ML 1,000 ML IV ONE (21:53)
[2019-07-29] MEDS ORDERED: DEXAMETHASONE SOD PHOS INJ 10 MG/1 ML VIAL IV ONE (22:39)
[2019-07-29 23:51] VITALS: BP 120/69
== END 2019-07-30 00:30 | disposition home or self-care (01) ==
LOC: ER 10:49
DX: R09.1 Pleurisy (principal); R00.0 Tachycardia, unspecified; R07.9 Chest pain, unspecified; R06.02 Shortness of breath
CPT/HCPCS: 93005; 36415; 87040; 84703; 85025; 80053; 81001; 84484; 85379; 83880; 71046; 71275; 93010; J7030; J1100; 96361; 96374; 99285